=== PATIENT | female | born 1975 | race African-American/Black ===

== ENCOUNTER 2017-06-17 12:42 | Emergency (ER) | payer OTHER ==
--- NOTE | 2017-06-17 12:55 | PDOC ---
History of Present Illness - General Chief Complaint: Rash Stated Complaint: RASH Time Seen by Provider: 06/17/17 12:45 History Source: Patient Exam Limitations: No Limitations - History of Present Illness Initial Comments: 06/17/17 12:57 CHIEF COMPLAINT: Abdominal pain HISTORY OF PRESENT ILLNESS: This is a 39 year old female with a history of HLD, HTN, anxiety/depression, and GERD who presents complaining of Rash on the left buttock that has been present for the past month. No fevers or chills No pain unless a cream is applied (+) Pruritis Pt states this happened to her last year She was given a pill for it No new detergents, or soaps, no injections in this area Surgical history: Tubal ligation Smoking: Social smoker Alcohol: 5-6 drinks/day Sat/Sun Illicits: None PCP: Dr. Dorian Downey REVIEW OF SYSTEMS: GENERAL/CONSTITUTIONAL: Decreased appetite, fatigue for 1 day. Chronic nightsweats. SKIN: Yes: rash No easy bruising. NEUROLOGIC: No headache, vertigo, loss of consciousness, or loss of sensation. PSYCHIATRIC: History of depression and anxiety ENDOCRINE: No increased thirst. No abnormal weight change. HEMATOLOGIC/LYMPHATIC: No anemia, easy bleeding, or history of blood clots. ALLERGIC/IMMUNOLOGIC: Metoclopramide (shaky), acetaminophen (shaky, general ill feeling), oxycodone (pruritus). PHYSICAL EXAM: GENERAL: The patient is awake, alert, and fully oriented, in no acute distress. HEAD: Normal with no signs of trauma. EXTREMITIES: Normal range of motion, no edema. SKIN: 4cm in diameter area of hyperpigmented, dry skin, one area also superior to this site that is darkened No local erythema No blisters Not warm 06/17/17 13:45 Past History - Past Medical History Allergies/Adverse Reactions: Allergies Allergy/AdvReac Type Severity Reaction Status Date / Time metoclopramide HCl Allergy Mild SHAKY Verified 06/17/17 12:44 [From Reglan] acetaminophen [From Percocet] Allergy Itching Verified 06/17/17 12:44 oxycodone HCl [From Percocet] Allergy Itching Verified 06/17/17 12:44 Home Medications: Ambulatory Orders Omeprazole [Prilosec] 20 mg PO DAILY 01/20/16 Clotrimazole [Alevazol] 1 unit TP BID #1 tube 06/17/17 HTN: Yes HIV: Yes Psychiatric Problems: Yes (ANXIETY.) Suicide Attempt (Hx): No - Surgical History Abdominal Surgery: Yes - Family Disease History Family Disease History: CA: Mother (colon) - Immunization History Immunization Up to Date: Yes - Psycho/Social/Smoking Cessation Hx Anxiety: Yes Suicidal Ideation: No Smoking Status: No Smoking History: Current some day smoker Have you smoked in the past 12 months: Yes Number of Cigarettes Smoked Daily: 2 Hx Alcohol Use: No Drug/Substance Use Hx: No Substance Use Type: None Medical Decision Making - Medical Decision Making 06/17/17 13:49 Unclear what this is due to Pt has no history of eczema, not warm, not tender Will discharge on fungal cream Will ask pt to follow up with derm *DC/Admit/Observation/Transfer Diagnosis at time of Disposition: Rash - Discharge Dispostion Disposition: HOME Condition at time of disposition: Stable Admit: No - Prescriptions Prescriptions: Clotrimazole [Alevazol] 1 unit TP BID #1 tube - Referrals Referrals: Trini Morris [Staff Physician] - - Patient Instructions Printed Discharge Instructions: DI for Rash Additional Instructions: Moises, Thank you for coming into the ED today. Please read your discharge instructions and take your medications as prescribed. Please follow up with dermatology, Dr. Morris. Return to the ED if you notice fever, chills, nausea, vomiting, or significantly worsening rash.
[2017-06-17 13:08] VITALS: BP 142/94; PULSE 80; TEMP 98.1; BMI 50.8
== END 2017-06-17 14:09 | disposition home or self-care (01) ==
LOC: FER 12:42
DX: R21 Rash and other nonspecific skin eruption (principal); Z21 Asymptomatic human immunodeficiency virus [HIV] infection status; I10 Essential (primary) hypertension; F41.9 Anxiety disorder, unspecified; F17.210 Nicotine dependence, cigarettes, uncomplicated
CPT/HCPCS: 99281-25

== ENCOUNTER 2017-08-02 15:09 | Emergency (ER) | payer OTHER ==
[2017-08-02 15:19] VITALS: BP 152/96; PULSE 64; TEMP 98.2; BMI 52.3
--- NOTE | 2017-08-02 15:43 | PDOC ---
History of Present Illness - General History Source: Patient, Significant Other - History of Present Illness Initial Comments: 08/02/17 15:49 The patient is a 41 year old female, no significant past medical history, who presents to the emergency department with right 3rd toe numbness. 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 Her subsea engineer then wrapped it with an bernabe bandage. Once the patient removed the bandage, she noticed that she lost sensation in her toe and became concerned. She denies experiencing this kind of numbness before. She denies any other symptoms. <Agustina Garcia - Last Filed: 08/02/17 15:55> <Tamiko Nina - Last Filed: 08/02/17 17:42> - General Chief Complaint: Pain, Acute Stated Complaint: toe numbness s/p procedure x 1 wk Time Seen by Provider: 08/02/17 15:19 Past History <Agustina Garcia - Last Filed: 08/02/17 15:55> - Past Medical History HTN: Yes Psychiatric Problems: Yes (ANXIETY.) Other medical history: gerd - Surgical History Abdominal Surgery: Yes - Family Disease History Family Disease History: CA: Mother (colon) - Immunization History Immunization Up to Date: Yes - Suicide/Smoking/Psychosocial Hx Smoking Status: No Smoking History: Former smoker Have you smoked in the past 12 months: Yes Number of Cigarettes Smoked Daily: 2 Information on smoking cessation initiated: Yes 'Breaking Loose' booklet given: 08/02/17 Hx Alcohol Use: Yes Drug/Substance Use Hx: No Substance Use Type: Alcohol <Tamiko Nina - Last Filed: 08/02/17 17:42> - Past Medical History Allergies/Adverse Reactions: Allergies Allergy/AdvReac Type Severity Reaction Status Date / Time metoclopramide HCl Allergy Mild SHAKY Verified 08/02/17 15:10 [From Reglan] acetaminophen [From Percocet] Allergy Itching Verified 08/02/17 15:10 oxycodone HCl [From Percocet] Allergy Itching Verified 08/02/17 15:10 Home Medications: Ambulatory Orders Omeprazole [Prilosec] 20 mg PO DAILY 01/20/16 Review of Systems - Review of Systems Comments:: 08/02/17 15:49 GENERAL/CONSTITUTIONAL: No fever or chills. No weakness. MUSCULOSKELETAL: + 3rd right toes numbness. No joint or muscle swelling or pain. No neck or back pain. SKIN: +removal of nail on 3rd rt toe after abscess removal. No rash NEUROLOGIC: +loss of sensation 3rd rt toe. No headache, vertigo, loss of consciousness, or change in strength. <Agustina Garcia - Last Filed: 08/02/17 15:55> *Physical Exam - Vital Signs Last Vital Signs Temp Pulse Resp BP Pulse Ox 98.2 F 64 16 152/96 99 08/02/17 15:10 08/02/17 15:10 08/02/17 15:10 08/02/17 15:10 08/02/17 15:10 <Agustina Garcia - Last Filed: 08/02/17 15:55> - Vital Signs Last Vital Signs Temp Pulse Resp BP Pulse Ox 98.2 F 64 16 152/96 99 08/02/17 15:10 08/02/17 15:10 08/02/17 15:10 08/02/17 15:10 08/02/17 15:10 - Physical Exam Comments: GENERAL: Awake, alert, and fully oriented, in no acute distress EXTREMITIES: L 3rd toe with dec sensation. Normal range of motion, no edema. No clubbing or cyanosis. No cords, erythema, or tenderness NEUROLOGICAL: Cranial nerves II through XII grossly intact. Normal speech, normal gait SKIN: Warm, Dry, normal turgor, no rashes or lesions noted. <Tamiko Nina - Last Filed: 08/02/17 17:42> Medical Decision Making - Medical Decision Making Pt with dec sensation to the affected toe. The infection has completed healed, so it is unlikely that it was so deep to cause nerve damage. More likely she had a lidocaine injection that may have gone into the nerve. I explained that it may heal over time. No acute findings otherwise. Stable for DC home. <Tamiko Nina - Last Filed: 08/02/17 17:42> *DC/Admit/Observation/Transfer - Attestations Scribe Attestion: 08/02/17 15:56 Documentation prepared by Agustina Garcia, acting as medical affairs manager for Tamiko Nina MD. <Agustina Garcia - Last Filed: 08/02/17 15:55> - Discharge Dispostion Admit: No <Tamiko Nina - Last Filed: 08/02/17 17:42> Diagnosis at time of Disposition: Paresthesia of lower extremity - Discharge Dispostion Disposition: HOME Condition at time of disposition: Stable - Patient Instructions Printed Discharge Instructions: DI for Numbness/tingling
== END 2017-08-02 15:48 | disposition home or self-care (01) ==
LOC: FER 15:09
DX: R20.2 Paresthesia of skin (principal); F32.9 Major depressive disorder, single episode, unspecified; I10 Essential (primary) hypertension; Z87.891 Personal history of nicotine dependence
CPT/HCPCS: 99281-25

== ENCOUNTER 2018-03-20 19:48 | Emergency (ER) | payer OTHER ==
[2018-03-20 19:56] VITALS: BP 132/78; PULSE 90; TEMP 98.3; BMI 50.6
[2018-03-20] MEDS ORDERED: IBUPROFEN 400 MG TABLET (FP) PO ONE ×2 (19:57→19:59)
--- NOTE | 2018-03-20 19:57 | PDOC ---
History of Present Illness <Janet Suazo - Last Filed: 03/20/18 19:59> - General History Source: Patient Exam Limitations: No Limitations - History of Present Illness Initial Comments: 03/20/18 20:10 The patient is a 42 year old female with a significant past medical history of GERD, hypertension, arthritis, and anxiety who presents to the emergency department for evaluation of pain behind left knee. The patient reports waking up yesterday with moderate pain on the dorsal side of her left knee. She reports taking Mobic yesterday with no alleviation and Motrin ([id number]) at 11am today with mild alleviation. She denies trauma to leg or any other kind of injuries. The patient denies chest pain, shortness of breath, headache, and dizziness. Denies fevers, chills, nausea, vomiting, diarrhea, and constipation. Allergies: Metoclopramide HCl, acetaminophen, oxycodone HCl Past surgical history: . Social history: Former smoker. No reported alcohol or drug use. PCP: Dr. Dorian Downey ([phone]) <Danis Mayers - Last Filed: 03/20/18 20:18> - General Chief Complaint: Pain Stated Complaint: LT KNEE PAIN Past History - Past Medical History COPD: No GI Disorders: Yes (GERD) HTN: Yes Psychiatric Problems: Yes (ANXIETY.) - Surgical History Abdominal Surgery: Yes - Family Disease History Family Disease History: CA: Mother (colon) - Immunization History Immunization Up to Date: Yes - Suicide/Smoking/Psychosocial Hx Smoking Status: No Smoking History: Former smoker Have you smoked in the past 12 months: No Number of Cigarettes Smoked Daily: 2 Information on smoking cessation initiated: No 'Breaking Loose' booklet given: 08/02/17 Hx Alcohol Use: No Drug/Substance Use Hx: No Substance Use Type: Alcohol <Janet Suazo - Last Filed: 03/20/18 19:59> <Danis Mayers - Last Filed: 03/20/18 20:18> - Past Medical History Allergies/Adverse Reactions: Allergies Allergy/AdvReac Type Severity Reaction Status Date / Time metoclopramide HCl Allergy Mild SHAKY Verified 08/02/17 15:10 [From Reglan] acetaminophen [From Percocet] Allergy Itching Verified 08/02/17 15:10 oxycodone HCl [From Percocet] Allergy Itching Verified 08/02/17 15:10 Home Medications: Ambulatory Orders Omeprazole [Prilosec] 20 mg PO DAILY 01/20/16 Ibuprofen 800 mg PO TID PRN #30 tablet 03/20/18 Review of Systems - Review of Systems Able to Perform ROS?: Yes Comments:: GENERAL/CONSTITUTIONAL: No fever or chills. No weakness. HEAD, EYES, EARS, NOSE AND THROAT: No change in vision. No ear pain or discharge. No sore throat. CARDIOVASCULAR: No chest pain or shortness of breath. RESPIRATORY: No cough, wheezing, or hemoptysis. GASTROINTESTINAL: No nausea, vomiting, diarrhea or constipation. GENITOURINARY: No dysuria, frequency, or change in urination. MUSCULOSKELETAL: (+)Dorsal side of left knee pain. No neck or back pain. SKIN: No rash NEUROLOGIC: No headache, vertigo, loss of consciousness, or change in strength/ sensation. ENDOCRINE: No increased thirst. No abnormal weight change. HEMATOLOGIC/LYMPHATIC: No anemia, easy bleeding, or history of blood clots. ALLERGIC/IMMUNOLOGIC: No hives or skin allergy. <Danis Mayers - Last Filed: 03/20/18 20:18> *Physical Exam - Vital Signs Last Vital Signs Temp Pulse Resp BP Pulse Ox 98.3 F 90 16 132/78 99 03/20/18 19:51 03/20/18 19:51 03/20/18 19:51 03/20/18 19:51 03/20/18 19:51 <Janet Suazo - Last Filed: 03/20/18 19:59> - Vital Signs Last Vital Signs Temp Pulse Resp BP Pulse Ox 98.3 F 90 16 132/78 99 03/20/18 19:51 03/20/18 19:51 03/20/18 19:51 03/20/18 19:51 03/20/18 19:51 - Physical Exam Comments: GENERAL: Awake, alert, and fully oriented, in no acute distress HEAD: No signs of trauma EYES: PERRLA, EOMI, sclera anicteric, conjunctiva clear ENT: Auricles normal inspection, hearing grossly normal, nares patent, oropharynx clear without exudates. Moist mucosa NECK: Normal ROM, supple, no lymphadenopathy, JVD, or masses LUNGS: Breath sounds equal, clear to auscultation bilaterally. No wheezes, and no crackles HEART: Regular rate and rhythm, normal S1 and S2, no murmurs, rubs or gallops ABDOMEN: Soft, nontender, normoactive bowel sounds. No guarding, no rebound. No masses EXTREMITIES: (+)Tenderness on lateral aspect of posterior left knee. Ambulatory with slight limp. No deformity or swelling. For other extremities, normal range of motion. NEUROLOGICAL: Cranial nerves II through XII grossly intact. Normal speech. SKIN: Warm, Dry, normal turgor, no rashes or lesions noted. <Danis Mayers - Last Filed: 03/20/18 20:18> ED Treatment Course - Medications Given in the ED: ED Medications Discontinued Medications Generic Name Dose Route Start Last Admin Trade Name Freq PRN Reason Stop Dose Admin Ibuprofen 800 mg 03/20/18 19:57 03/20/18 20:00 Motrin - PO 03/20/18 19:58 800 mg ONCE ONE Administration <Danis Mayers - Last Filed: 03/20/18 20:18> Medical Decision Making - Medical Decision Making 03/20/18 19:59 Pt presents to the ED complaining of atraumatic l knee pain. Patient is ambulatory in the ED without difficulty. Minimal lateral knee tenderness. No swelling. Full ROM. Most likely knee strain. WIll treat with motrin and discharge home with instructions to follow up with her PMD within one week. <Janet Suazo - Last Filed: 03/20/18 19:59> *DC/Admit/Observation/Transfer - Discharge Dispostion Decision to Admit order: No <Janet Suazo - Last Filed: 03/20/18 19:59> - Attestations Scribe Attestion: Documentation prepared by Danis Mayers, acting as medical office administrator for Janet Suazo MD. <Danis Mayers - Last Filed: 03/20/18 20:18> Diagnosis at time of Disposition: Left lateral knee pain - Discharge Dispostion Disposition: HOME Condition at time of disposition: Good - Prescriptions Prescriptions: Ibuprofen 800 mg PO TID PRN #30 tablet PRN Reason: Moderate Pain - Referrals Referrals: Dorian Downey MD [Primary Care Provider] - - Patient Instructions Printed Discharge Instructions: DI for Knee Pain Additional Instructions: return to the ED for severe knee pain or swelling, if you are unable to bend your knee or walk. Return if your leg becomes swollen or if you have pain in your knee with fever. Follow up with your doctor within one week. - Post Discharge Activity
== END 2018-03-20 20:05 | disposition home or self-care (01) ==
LOC: FER 19:48
DX: M25.562 Pain in left knee (principal)
CPT/HCPCS: 99282-25

== ENCOUNTER 2018-03-26 14:38 | Emergency (ER) | payer OTHER ==
[2018-03-26 14:52] VITALS: BP 137/91; PULSE 88; TEMP 98.9; BMI 47.6
--- NOTE | 2018-03-26 15:26 | PDOC ---
History of Present Illness - General History Source: Patient Exam Limitations: No Limitations - History of Present Illness Initial Comments: 03/26/18 16:02 The patient is a 42 year old female with a significant past medical history of GERD, hypertension, arthritis, pre-diabetic, borderline HTN, osteoarthritis, and anxiety who presents to the emergency department with, one week of pain behind left knee. She describes her pain to be localized to the back of her left knee and as a heavy feeling. The patient reports that she woke up with this pain a week ago and came into the ED for evaluation. The patient was prescribed Motrin that she has been taking with minimal relief. The patient is currently on disability after fracturing her leg in the past. She denies any recent injury. She denies recent fevers, chills, headache or dizziness. She denies recent nausea, vomit, diarrhea or constipation. She denies recent dysuria, frequency, urgency or hematuria. She denies recent chest pain or shortness of breath. Allergies: Metoclopramide HCl, acetaminophen, oxycodone HCl Past surgical history: . Social history: Former smoker..Denies EtOH use and recreational drug use. Primary Care Physician: Dr. Dorian Downey <Jacky Medrano - Last Filed: 03/26/18 16:02> <Josesito Vasquez - Last Filed: 03/26/18 16:11> - General Chief Complaint: Pain Stated Complaint: LEFT KNEE PAIN Time Seen by Provider: 03/26/18 14:53 Past History <Jacyk Medrano - Last Filed: 03/26/18 16:02> - Past Medical History COPD: No HTN: Yes Psychiatric Problems: Yes (ANXIETY.) - Surgical History Abdominal Surgery: Yes - Family Disease History Family Disease History: CA: Mother (colon) - Immunization History Immunization Up to Date: Yes - Suicide/Smoking/Psychosocial Hx Smoking Status: No Smoking History: Former smoker Have you smoked in the past 12 months: No Number of Cigarettes Smoked Daily: 2 Information on smoking cessation initiated: No 'Breaking Loose' booklet given: 08/02/17 Hx Alcohol Use: No Drug/Substance Use Hx: No Substance Use Type: None <Josesito Vasquez - Last Filed: 03/26/18 16:11> - Past Medical History Allergies/Adverse Reactions: Allergies Allergy/AdvReac Type Severity Reaction Status Date / Time metoclopramide HCl Allergy Mild SHAKY Verified 08/02/17 15:10 [From Reglan] acetaminophen [From Percocet] Allergy Itching Verified 08/02/17 15:10 oxycodone HCl [From Percocet] Allergy Itching Verified 08/02/17 15:10 Home Medications: Ambulatory Orders Omeprazole [Prilosec] 20 mg PO DAILY 01/20/16 Ibuprofen 800 mg PO TID PRN #30 tablet 03/20/18 Trauma Specific PMHX - Complaint Specific PMHX Arthritis: No Back Injury: No Neck Injury: No Hx Sacro Iliac Joint Dysfunction: No <Josesito Vasquez - Last Filed: 03/26/18 16:11> Review of Systems - Review of Systems Able to Perform ROS?: Yes Comments:: 03/26/18 16:02 CONSTITUTIONAL: Absent: fever, no chills, no fatigue EYES: Absent: visual changes ENT: Absent: ear pain, no sore throat CARDIOVASCULAR: Absent: chest pain, no palpitations RESPIRATORY: Absent: cough, no SOB GI: Absent: abdominal pain, no nausea, no vomiting, no constipation, no diarrhea GENITOURINARY: Absent: dysuria, no frequency, no hematuria MUSKULOSKELETAL: Present: Dorsal side of left knee pain. Absent: back pain SKIN: Absent: rash NEURO: Absent: headache All Other Systems: Reviewed and Negative <Jacky Medrano - Last Filed: 03/26/18 16:02> *Physical Exam - Vital Signs Last Vital Signs Temp Pulse Resp BP Pulse Ox 98.9 F 88 16 137/91 99 03/26/18 14:42 03/26/18 14:42 03/26/18 14:42 03/26/18 14:42 03/26/18 14:42 - Physical Exam Comments: 03/26/18 16:02 GENERAL: Well developed, well nourished. Awake and alert. No acute distress. HEENT: Normocephalic, atraumatic. PERRLA, EOMI. No conjunctival pallor. Sclera are non- icteric. Moist mucous membranes. Oropharynx is clear. NECK: Supple. Full ROM. No JVD. Carotid pulses 2+ and symmetric, without bruits. No thyromegaly. No lymphadenopathy. CARDIOVASCULAR: Regular rate and rhythm. No murmurs, rubs, or gallops. Distal pulses are 2+ and symmetric. PULMONARY: No evidence of respiratory distress. Lungs clear to auscultation bilaterally. No wheezing, rales or rhonchi. ABDOMINAL: Soft. Non-tender. Non-distended. No rebound or guarding. No organomegaly. Normoactive bowel sounds. MUSCULOSKELETAL Normal range of motion at all joints. No bony deformities or tenderness. No CVA tenderness. KNEE: Patient complains of localized pain to the left popliteal area. No anterior or lateral pain. No deformities, swelling, or effusion. Patella and patellar retinaculum intact and nontender. No stress tenderness of the MCL or LCL. Danish test negative. No popliteal mass or tenderness to palpation. Distal pulses full. No distal sensation or motor deficits. No posterior calf tenderness or swelling. No edema to the calf. No erythema or warmth of the knee or calf. EXTREMITIES: No cyanosis. No clubbing. No edema. No calf tenderness. SKIN: Warm and dry. Normal capillary refill. No rashes. No jaundice. NEUROLOGICAL: Alert, awake, appropriate. Cranial nerves 2-12 intact. No deficits to light touch and temperature in face, upper extremities and lower extremities. No motor deficits in the in face, upper extremities and lower extremities. Normoreflexic in the upper and lower extremities. Normal speech. Toes are down- going bilaterally. Gait is normal without ataxia. PSYCHIATRIC: Cooperative. Good eye contact. Appropriate mood and affect. <Jacky Medrano - Last Filed: 03/26/18 16:02> - Vital Signs Last Vital Signs Temp Pulse Resp BP Pulse Ox 98.9 F 88 16 137/91 99 03/26/18 14:42 03/26/18 14:42 03/26/18 14:42 03/26/18 14:42 03/26/18 14:42 <Josesito Vasquez - Last Filed: 03/26/18 16:11> Medical Decision Making - Medical Decision Making 03/26/18 16:10 No evidence of acute knee injury, or DVT. This is likely chronic strain due to morbid obesity. Obed wrap applied. Symptomatic treatment and orthopedic follow-up recommended. Adequately ambulatory upon discharge in no significant pain to follow-up as directed <Josesito Vasquez - Last Filed: 03/26/18 16:11> *DC/Admit/Observation/Transfer - Attestations Scribe Attestion: 03/26/18 16:03 Documentation prepared by Jacky Medrano, acting as medical technologist chief for Josesito Berman MD. <Jacky Medrano - Last Filed: 03/26/18 16:02> - Discharge Dispostion Decision to Admit order: No <Josesito Vasquez - Last Filed: 03/26/18 16:11> Diagnosis at time of Disposition: Knee strain Qualifiers: Encounter type: initial encounter Laterality: left Qualified Code(s): S86.912A - Strain of unspecified muscle(s) and tendon(s) at lower leg level, left leg, initial encounter - Discharge Dispostion Disposition: HOME Condition at time of disposition: Stable - Referrals Referrals: Keon Kuhn MD [Staff Physician] - 1 week - Patient Instructions Printed Discharge Instructions: How to Use an Elastic Bandage-Knee Sprain, DI for Knee Sprain Additional Instructions: Rest, ice, elevation, Obed wrap. Motrin as directed. Recheck orthopedist if no improvement. - Post Discharge Activity
== END 2018-03-26 15:30 | disposition home or self-care (01) ==
LOC: FER 14:38
DX: S86.912A Strain of unspecified muscle(s) and tendon(s) at lower leg level, left leg, initial encounter (principal); X58.XXXA Exposure to other specified factors, initial encounter; Y93.89 Activity, other specified; Y92.9 Unspecified place or not applicable; E66.01 Morbid (severe) obesity due to excess calories; F41.9 Anxiety disorder, unspecified; I10 Essential (primary) hypertension; Z87.891 Personal history of nicotine dependence
CPT/HCPCS: 99282-25

== ENCOUNTER 2018-08-21 18:25 | Emergency (ER) | payer OTHER ==
[2018-08-21 18:38] VITALS: BP 135/85; PULSE 81; TEMP 98.5; BMI 50.6
[2018-08-21 18:53] LABS: URINE APPEARANCE Slightly; URINE BILIRUBIN Negative (NEGATIVE); URINE COLOR Yellow; URINE GLUCOSE (UA) Negative (NEGATIVE); URINE KETONE Negative (NEGATIVE); URINE LEUK ESTERASE TRACE (NEGATIVE); URINE NITRITE Negative (NEGATIVE); URINE PROTEIN 2+ (NEGATIVE); URINE UROBILINOGEN 0.2 (0.2-1.0)
--- NOTE | 2018-08-21 19:14 | PDOC ---
History of Present Illness - General History Source: Patient Exam Limitations: No Limitations - History of Present Illness Initial Comments: 08/21/18 19:30 The patient is a 42 year old female, with a significant past medical history of anxiety, GERD, iron deficiency anemia (no meds) and HTN, who presents to the ED complaining of diarrhea and abdominal pain for the past 5 days. She denies any discoloration or blood in the stool. She describes her abdominal pain as a discomfort, ranging from mild to moderate, without radiation or modifying factors. She notes that she is eating normally for the past 4 days. The patient denies chest pain, shortness of breath, headache and dizziness. Denies fever, chills, nausea, vomiting, or constipation. Denies dysuria, frequency, urgency and hematuria. Allergies: Percocet, Reglan Past surgical history: tubaligaiton, Social History: Alcohol use. Cigarette use (3 daily). No drug use noted. <Frank Osman - Last Filed: 08/21/18 20:18> <Aurora Grace - Last Filed: 08/22/18 01:34> - General Chief Complaint: Pain Stated Complaint: ABDOMINAL PAIN 5 DAYS LOOSE STOOL Time Seen by Provider: 08/21/18 19:14 Past History <Frank Osman - Last Filed: 08/21/18 20:18> - Past Medical History COPD: No GI Disorders: Yes (GERD) HTN: Yes Psychiatric Problems: Yes (ANXIETY.) - Surgical History Abdominal Surgery: Yes - Family Disease History Family Disease History: CA: Mother (colon) - Reproductive History Is Patient Now?: No (#): 6 Para: 6 Tubal Ligation: Yes Spontaneous : 1 - Immunization History Immunization Up to Date: Yes - Suicide/Smoking/Psychosocial Hx Smoking Status: No Smoking History: Former smoker Have you smoked in the past 12 months: Yes Number of Cigarettes Smoked Daily: 3 Information on smoking cessation initiated: Yes 'Breaking Loose' booklet given: 08/21/18 Hx Alcohol Use: Yes (social) Drug/Substance Use Hx: No Substance Use Type: Alcohol <Aurora Grace - Last Filed: 08/22/18 01:34> - Past Medical History Allergies/Adverse Reactions: Allergies Allergy/AdvReac Type Severity Reaction Status Date / Time acetaminophen [From Percocet] Allergy Intermediate Itching Verified 08/21/18 18: 29 oxycodone HCl [From Percocet] Allergy Intermediate Itching Verified 08/21/18 18: 29 metoclopramide HCl Allergy Mild SHAKY Verified 08/21/18 18:28 [From Reglan] Home Medications: Ambulatory Orders Ibuprofen 800 mg PO PRN PRN 08/21/18 Omeprazole Magnesium [Prilosec Otc] 20 mg PO DAILY 08/21/18 Review of Systems - Review of Systems Able to Perform ROS?: Yes Comments:: 08/21/18 19:30 GENERAL/CONSTITUTIONAL: No fever or chills. No weakness. HEAD, EYES, EARS, NOSE AND THROAT: No change in vision. No ear pain or discharge. No sore throat. GASTROINTESTINAL: (+) Abdominal pain and diarrhea. No nausea, vomiting, or constipation. GENITOURINARY: No dysuria, frequency, or change in urination. CARDIOVASCULAR: No chest pain or shortness of breath. RESPIRATORY: No cough, wheezing, or hemoptysis. MUSCULOSKELETAL: No joint or muscle swelling or pain. No neck or back pain. SKIN: No rash NEUROLOGIC: No headache, vertigo, loss of consciousness, or change in strength/ sensation. ENDOCRINE: No increased thirst. No abnormal weight change. HEMATOLOGIC/LYMPHATIC: No anemia, easy bleeding, or history of blood clots. ALLERGIC/IMMUNOLOGIC: No hives or skin allergy. <Frank Osman - Last Filed: 08/21/18 20:18> *Physical Exam - Vital Signs Last Vital Signs Temp Pulse Resp BP Pulse Ox 98.5 F 81 20 135/85 100 08/21/18 18:27 08/21/18 18:27 08/21/18 18:27 08/21/18 18:27 08/21/18 18:27 - Physical Exam Comments: 08/21/18 19:37 Constitutional: Awake, alert, oriented. No acute distress. Head: Normocephalic. Atraumatic Eyes: PERRL. EOMI. Conjunctivae are not pale. ENT: Mucous membranes are moist and intact. Posterior pharynx without exudates or erythema. Uvula midline. Neck: Supple. Full ROM. No lymphadenopathy. Cardiovascular: Regular rate. Regular rhythm. S1, S2 regular. Distal pulses are 2+ and symmetric. Pulmonary/Chest: No evidence of respiratory distress. Clear to auscultation bilaterally No wheezing, rales or rhonchi. Abdominal: Soft and non-distended. There is no tenderness. No rebound, guarding or rigidity. No organomegaly. No palpable masses. Good bowel sounds. Back: No CVA tenderness. Musculoskeletal: No edema. No cyanosis. No clubbing. Full range of motion in all extremities. Nocalf tenderness. Radial/pedal pulses are intact and 2+ bilaterally Skin: Skin is warm and dry. No petechiae. No purpura. Neurological: Alert and oriented to person, place, and time. Cranial nerves II -XII are grossly intact. Normal speech. Strength is grossly symmetric. No sensory deficits. Psychiatric: Good eye contact. Normal interaction, affect and behavior. <Frank Osman - Last Filed: 08/21/18 20:18> - Vital Signs Last Vital Signs Temp Pulse Resp BP Pulse Ox 98.5 F 81 20 135/85 100 08/21/18 18:27 08/21/18 18:27 08/21/18 18:27 08/21/18 18:27 08/21/18 18:27 <Aurora Grace - Last Filed: 08/22/18 01:34> ED Treatment Course - LABORATORY CBC & Chemistry Diagram: 08/21/18 19:35 08/21/18 19:35 - ADDITIONAL ORDERS Additional order review: Laboratory Results 08/21/18 08/21/18 18:43 18:43 Urine Color Yellow Urine Appearance Slightly Urine pH 6.0 Ur Specific [place] 1.025 Urine Protein 2+ H Urine Glucose (UA) Negative Urine Ketones Negative Urine Blood 2+ H Urine Nitrite Negative Urine Bilirubin Negative Urine Urobilinogen 0.2 Ur Leukocyte Esterase Trace H Urine RBC 10-20 Urine WBC 10-20 Ur Epithelial Cells 2+ Urine Bacteria 2+ Urine HCG, Qual Negative <Frank Osman - Last Filed: 08/21/18 20:18> - LABORATORY CBC & Chemistry Diagram: 08/21/18 19:35 08/21/18 19:35 - ADDITIONAL ORDERS Additional order review: Laboratory Results 08/21/18 08/21/18 18:43 18:43 Urine Color Yellow Urine Appearance Slightly Urine pH 6.0 Ur Specific [place] 1.025 Urine Protein 2+ H Urine Glucose (UA) Negative Urine Ketones Negative Urine Blood 2+ H Urine Nitrite Negative Urine Bilirubin Negative Urine Urobilinogen 0.2 Ur Leukocyte Esterase Trace H Urine HCG, Qual Negative <Aurora Grace - Last Filed: 08/22/18 01:34> Progress Note - Progress Note Progress Note: Documentation has been prepared under my direction and personally reviewed by me in its entirety. I attest that this documented accurately reflects all work, treatment, procedures and medical decision making performed by me. <Aurora Grace - Last Filed: 08/22/18 01:34> Medical Decision Making - Medical Decision Making As noted above, this 42-year-old woman presents with a several day history of diarrhea. She has not had any vomiting and has been able to take oral hydration and solid foods for the last few days. She presents tonight because she has some residual bloating and epigastric discomfort. She states that she does not have dysuria/urinary frequency or urgency. However, when she has epigastric discomfort in this way she has developed UTIs in the past. No other symptoms presented. Exam as noted. CBC/chemistry profile/UA was sent. Patient has borderline anemia; she has a previous diagnosis of iron deficiency anemia but does not take her iron supplementation because she becomes constipated while taking it. No other abnormalities on CBC. Chemistry profile likewise shows no electrolyte abnormalities or evidence of dehydration. Urinalysis is equivocal with trace LE, 10 - 20 RBC, 1020 WBC, 2+ epi, 2+ bacteria. Urine will be sent for culture and sensitivity. Meanwhile, the patient should continue bland diet and Prilosec as previously. If she develops symptoms of UTI, she should return here or see her doctor. Otherwise, she will be contacted if C&S is positive for UTI. Probiotics were Discussed with the patient ;she will consider taking them. She should follow-up with her doctor in next several days <Aurora Grace - Last Filed: 08/22/18 01:34> *DC/Admit/Observation/Transfer - Attestations Scribe Attestion: 08/21/18 19:37 Documentation prepared by Frank Osman, acting as medical device assembler for Aurora Grace MD <Frank Osman - Last Filed: 08/21/18 20:18> <Aurora Grace - Last Filed: 08/22/18 01:34> Diagnosis at time of Disposition: Diarrhea Qualifiers: Diarrhea type: unspecified type Qualified Code(s): R19.7 - Diarrhea, unspecified Anemia Qualifiers: Anemia type: iron deficiency Iron deficiency anemia type: unspecified iron deficiency Qualified Code(s): D50.9 - Iron deficiency anemia, unspecified - Discharge Dispostion Disposition: HOME Condition at time of disposition: Stable - Patient Instructions Printed Discharge Instructions: Diarrhea Additional Instructions: continue bland diet as discussed continue prilosec as previously prescribed Imodium/Kaopectate if loose stools occur consider using probiotics as discussed followup with your doctor within the next 5 days return to the ER if you have severe abdominal pain or UTI symptoms
[2018-08-21 19:25] LABS: EPI CELLS 2+ /HPF; URINE BACTERIA 2+ /hpf (NEGATIVE)
[2018-08-21 19:50] LABS: BASO % 0.4 % (0-2.0); EOS % 1.7 % (0-4.5); HEMATOCRIT 30.2 % (32.4-45.2); HEMOGLOBIN 9.9 GM/dl (10.7-15.3); LYMPH % 39.7 % (8-40); MCH 27.8 pg (25.7-33.7); MCHC 32.8 g/dl (32.0-36.0); MEAN CELL VOLUME 84.7 fl (80-96); MEAN PLT VOLUME 7.5 fl (7.5-11.1); MONO % 7.8 % (3.8-10.2); NEUT % 50.4 % (42.8-82.8); PLATELET COUNT 383 K/MM3 (134-434); RBC 3.57 M/mm3 (3.60-5.2); RDW 14.5 % (11.6-15.6); WHITE BLOOD COUNT 5.6 K/mm3 (4.0-10.8)
[2018-08-21 20:02] LABS: ALBUMIN 2.9 g/dl (3.5-5.0); ALK PHOS 85 U/L (32-92); ANION GAP 4 MMOL/L (8-16); BILIRUBIN,TOTAL 0.3 mg/dl (0.2-1.0); BLOOD UREA NITROGEN 11 mg/dl (7-18); CALCIUM 8.5 mg/dl (8.4-10.2); CHLORIDE 106 mmol/L (98-107); CO2 24 mmol/L (22-28); CREATININE 0.7 mg/dl (0.6-1.3); GLUCOSE,RANDOM 97 mg/dl (74-106); POTASSIUM 3.6 mmol/L (3.5-5.1); SGOT/AST 29 U/L (10-42); SGPT/ALT 24 U/L (10-40); SODIUM 134 mmol/L (136-145); TOT PROT 6.8 g/dl (6.4-8.3)
[2018-08-21] MEDS ORDERED: MAG HYDROX/AL HYDROX/SIMETH -MYLANTA- ORAL SUSPENSION PO ONE (20:12)
[2018-08-21] MEDS ORDERED: MAG HYDROX/AL HYDROX/SIMETH 30 ML UNIT-DOSE CUP ONE (20:19)
== END 2018-08-21 20:23 | disposition home or self-care (01) ==
LOC: FER 18:25
DX: D50.9 Iron deficiency anemia, unspecified (principal); R19.7 Diarrhea, unspecified; F41.9 Anxiety disorder, unspecified; K21.9 Gastro-esophageal reflux disease without esophagitis; I10 Essential (primary) hypertension
CPT/HCPCS: 36415; 80053; 81003; 81015; 84703; 85025; 87086; 99282-25

== ENCOUNTER 2019-07-29 11:14 | Emergency (ER) | payer OTHER ==
[2019-07-29 11:26] VITALS: BP 153/93; PULSE 95; TEMP 99.8; BMI 48.7
--- NOTE | 2019-07-29 12:05 | PDOC ---
History of Present Illness - General Chief Complaint: Pain Stated Complaint: ABDOMINAL PAIN,FREQUENT URINATION Time Seen by Provider: 07/29/19 11:27 History Source: Patient (Patient walked in complaining of abdominal cheryl, mainly suprapibic, urgency at urination, Patient reports having intercourse 4 days ago (after a long abstinence)) - History of Present Illness Is this a multiple visit Asthma Patient?: No Timing/Duration: getting worse Severity: moderate Past History - Travel Traveled outside of the country in the last 30 days: No Close contact w/someone who was outside of country & ill: No - Past Medical History Allergies/Adverse Reactions: Allergies Allergy/AdvReac Type Severity Reaction Status Date / Time acetaminophen [From Percocet] Allergy Intermediate Itching Verified 07/29/19 11: 16 oxycodone HCl [From Percocet] Allergy Intermediate Itching Verified 07/29/19 11: 16 metoclopramide HCl Allergy Mild SHAKY Verified 07/29/19 11:16 [From Reglan] Home Medications: Ambulatory Orders Ibuprofen 800 mg PO PRN PRN 08/21/18 Omeprazole Magnesium [Prilosec Otc] 20 mg PO DAILY 08/21/18 levoFLOXacin [Levaquin] 750 mg PO DAILY #14 tab 07/29/19 COPD: No GI Disorders: Yes (GERD) HTN: Yes Psychiatric Problems: Yes (ANXIETY.) - Surgical History Abdominal Surgery: Yes - Reproductive History (#): 6 Para: 6 Tubal Ligation: Yes Spontaneous : 1 - Immunization History Immunization Up to Date: Yes - Psycho Social/Smoking Cessation Hx Smoking Status: No Smoking History: Current some day smoker Have you smoked in the past 12 months: Yes Number of Cigarettes Smoked Daily: 1 Information on smoking cessation initiated: Yes 'Breaking Loose' booklet given: 08/21/18 Hx Alcohol Use: Yes (social) Drug/Substance Use Hx: No Substance Use Type: Alcohol Review of Systems - Review of Systems Able to Perform ROS?: Yes Is the patient limited Spanish proficient: Yes Constitutional: Yes: Symptoms Reported, Chills, Malaise HEENTM: No: Symptoms Reported, See HPI, Eye Pain, Blurred Vision, Tearing, Recent change in vision, Double Vision, Cataracts, Ear Pain, Ocular Prothesis, Ear Discharge, Nose Pain, Nose Congestion, Tinnitus, Nose Bleeding, Hearing Loss , Throat Pain, Throat Swelling, Mouth Pain, Dental Problems, Difficulty Swallowing, Mouth Swelling, Other Respiratory: No: Symptoms reported, See HPI, Cough, Orthopnea, Shortness of Breath, SOB with Exertion, SOB at Rest, Stridor, Wheezing, Productive cough, Hemoptysis, Other Cardiac (ROS): No: Symptoms Reported, See HPI, Chest Pain, Edema, Irregular Heart Rate, Lightheadedness, Palpitations, Syncope, Chest Tightness, Other ABD/GI: Yes: See HPI : Yes: Symptoms Reported, Burning, Dysuria, Frequency Neurological: No: Symptoms reported, See HPI, Headache, Numbness, Paresthesia, Pre-Existing Deficit, Seizure, Tingling, Tremors, Weakness, Unsteady Gait, Ataxia, Dizziness, Other Psychiatric: No: Anxiety, Depression, Frequent Crying, Stressors, Sleep Pattern Change, Emotional Problems, Mood Swings, Change in Appetite, Other *Physical Exam - Vital Signs Last Vital Signs Temp Pulse Resp BP Pulse Ox 99.8 F H 95 H 18 153/93 99 07/29/19 11:15 07/29/19 11:15 07/29/19 11:15 07/29/19 11:15 07/29/19 11:15 - Physical Exam General Appearance: Yes: Nourished, Appropriately Dressed, Mild Distress, Moderate Distress, Obese HEENT: positive: [place] Neck: positive: Supple Gastrointestinal/Abdominal: positive: Normal Bowel Sounds, Soft Musculoskeletal: positive: Normal Inspection Extremity: positive: Normal Capillary Refill, Normal Inspection Integumentary: positive: Normal Color, Dry, Warm Neurologic: positive: Fully Oriented, Alert Medical Decision Making - Medical Decision Making Patient's symptoms starting next day after having intercours, strongly suggestive of UTI Rx started in ER 07/31/19 07:30 Discharge - Discharge Information Problems reviewed: Yes Clinical Impression/Diagnosis: UTI (urinary tract infection) Qualifiers: Urinary tract infection type: acute cystitis Hematuria presence: with hematuria Qualified Code(s): N30.01 - Acute cystitis with hematuria Condition: Stable Disposition: HOME - Admission No - Additional Discharge Information Prescriptions: levoFLOXacin [Levaquin] 750 mg PO DAILY #14 tab Prescription Drug Monitoring Program (I-STOP) results: I-STOP reviewed and no issues identified - Follow up/Referral - Patient Discharge Instructions Patient Printed Discharge Instructions: DI for Urinary Tract Infection (UTI) - Post Discharge Activity
[2019-07-29 13:54] LABS: EPITHELIAL CELLS FEW /hpf; URINE TRICHOMONAS 1+
== END 2019-07-29 12:58 | disposition home or self-care (01) ==
LOC: FER 11:14
DX: N39.0 Urinary tract infection, site not specified (principal); F17.210 Nicotine dependence, cigarettes, uncomplicated; K21.9 Gastro-esophageal reflux disease without esophagitis; F41.9 Anxiety disorder, unspecified; Z88.8 Allergy status to other drugs, medicaments and biological substances; Z88.6 Allergy status to analgesic agent
CPT/HCPCS: 81003; 81015; 81025; 87086; 87186; 99283-25

== ENCOUNTER 2021-07-27 06:40 | Emergency (ER) | payer OTHER ==
[2021-07-27 07:10] VITALS: BP 134/87; PULSE 83; TEMP 97.3; BMI 20.7
[2021-07-27] MEDS ORDERED: LIDOCAINE 5% TOPICAL PATCH ONE (07:49)
== END 2021-07-27 09:25 | disposition home or self-care (01) ==
LOC: JER 06:40 → JERFT 06:40
DX: M25.551 Pain in right hip (principal)
CPT/HCPCS: 99283-25

== ENCOUNTER 2021-07-28 17:28 | Emergency (ER) | payer OTHER ==
[2021-07-28 17:46] VITALS: BP 140/92; PULSE 91; TEMP 98.6; BMI 48.4
[2021-07-28] MEDS ORDERED: KETOROLAC TROMETHAMINE 60 MG/2 ML VIAL IM ONE (18:33)
[2021-07-28] MEDS ORDERED: KETOROLAC TROMETHAMINE 60 MG/2 ML VIAL ONE (18:34)
[2021-07-28 18:51] LABS: EPI CELLS 21 /uL (0-25.1); HYALINE CASTS 0 /uL (0-3.1); URINE APPEARANCE CLEAR; URINE BACTERIA 206 /uL (0-1359); URINE BILIRUBIN NEGATIVE (NEGATIVE); URINE COLOR YELLOW; URINE GLUCOSE (UA) NEGATIVE (NEGATIVE); URINE KETONE NEGATIVE (NEGATIVE); URINE LEUK ESTERASE TRACE (NEGATIVE); URINE NITRITE NEGATIVE (NEGATIVE); URINE PROTEIN 2+ (NEGATIVE); URINE RBC 95 /uL (0-23.9); URINE UROBILINOGEN 0.2 mg/dL (0.2-1.0); URINE WBC 54 /uL (0-25.8)
== END 2021-07-28 20:35 | disposition home or self-care (01) ==
LOC: JERFT 17:28
PROC: 3E0233Z Introduction of Anti-inflammatory into Muscle, Percutaneous Approach (ICD-10-PCS; principal; 2021-07-28)
DX: M25.551 Pain in right hip (principal)
CPT/HCPCS: 81003; 87086; 99284-25

== ENCOUNTER 2022-01-16 17:39 | Emergency (ER) | payer OTHER ==
[2022-01-16] MEDS ORDERED: KETOROLAC TROMETHAMINE 30 MG/1 ML VIAL IM ONE (18:11)
[2022-01-16 18:15] VITALS: BP 140/82; PULSE 88; TEMP 98.2; BMI 44.3
[2022-01-16] MEDS ORDERED: KETOROLAC TROMETHAMINE 30 MG/1 ML VIAL ONE (18:49)
== END 2022-01-16 19:12 | disposition home or self-care (01) ==
LOC: FER 17:39
PROC: 3E0233Z Introduction of Anti-inflammatory into Muscle, Percutaneous Approach (ICD-10-PCS; principal; 2022-01-16)
DX: M16.11 Unilateral primary osteoarthritis, right hip (principal)
CPT/HCPCS: 73502-TC-RT-FY; 99284-25

== ENCOUNTER 2022-03-13 15:31 | Emergency (ER) | payer OTHER ==
[2022-03-13 16:23] VITALS: BP 120/67; PULSE 97; TEMP 99; BMI 47.3
[2022-03-13] MEDS ORDERED: SUCRALFATE 1 GM/10 ML UNIT DOSE CUPS PO ONE (17:56)
[2022-03-13] MEDS ORDERED: SODIUM CHLORIDE 0.9% 500 ML INFUS.BAG IV ONE (17:56)
[2022-03-13] MEDS ORDERED: SUCRALFATE 1 GM/10 ML UNIT DOSE CUPS ONE (18:20)
[2022-03-13 18:43] LABS: HEMATOCRIT 27.1 % (32.4-45.2); HEMOGLOBIN 8.9 G/dL (10.7-15.3); RBC 3.35 10^6/uL (3.60-5.2); WHITE BLOOD COUNT 7.8 10^3/uL (4.0-10.8)
[2022-03-13 18:44] LABS: MCH 26.7 pg (25.7-33.7); MEAN PLT VOLUME 7.1 fl (7.5-11.1); PLATELET COUNT 455.9 10^3/uL (134-434); RDW 16.9 % (11.6-15.6)
[2022-03-13 18:45] LABS: PLATELET ESTIMATE SLT INCREASE
[2022-03-13 18:52] LABS: CALCIUM 9.1 mg/dl (8.5-10)
[2022-03-13 18:53] LABS: ALBUMIN 2.9 g/dl (3.4-5.0); BILIRUBIN,TOTAL 0.4 mg/dl (0.2-1); TOT PROT 7.2 g/dl (6.4-8.2)
[2022-03-13] MEDS ORDERED: KETOROLAC TROMETHAMINE 15 MG/ML VIAL IM ONE (19:21)
[2022-03-13] MEDS ORDERED: KETOROLAC TROMETHAMINE 15 MG/ML VIAL ONE (19:22)
[2022-03-13] MEDS ORDERED: KETOROLAC TROMETHAMINE 15 MG/ML VIAL IVPUSH ONE (19:23)
[2022-03-13 19:51] LABS: EPITHELIAL CELLS FEW /hpf
== END 2022-03-13 19:27 | disposition home or self-care (01) ==
LOC: FER 15:31
PROC: 3E0333Z Introduction of Anti-inflammatory into Peripheral Vein, Percutaneous Approach (ICD-10-PCS; principal; 2022-03-13)
DX: R10.13 Epigastric pain (principal)
CPT/HCPCS: 36415; 80053; 81003; 81015; 85025; 87086; 99284-25

== ENCOUNTER 2022-04-18 18:59 | Emergency (ER) | payer OTHER ==
[2022-04-18 19:14] VITALS: BP 139/87; PULSE 82; TEMP 98; BMI 43.6
[2022-04-18] MEDS ORDERED: IBUPROFEN 400 MG TABLET (FP) PO ONE ×2 (21:22→21:29)
[2022-04-18] MEDS ORDERED: IBUPROFEN 600 MG TABLET (FP) PO ONE (21:28)
== END 2022-04-18 22:25 | disposition home or self-care (01) ==
LOC: FER 18:59
DX: S76.911A Strain of unspecified muscles, fascia and tendons at thigh level, right thigh, initial encounter (principal); M54.31 Sciatica, right side; Y99.9 Unspecified external cause status
CPT/HCPCS: 74176-TC; 81003; 81015; 84703; 87086; 99285-25

== ENCOUNTER 2022-08-02 18:24 | Emergency (ER) | payer OTHER ==
[2022-08-02 18:48] VITALS: BP 143/87; PULSE 96; RESP 96; TEMP 99; BMI 45.9
[2022-08-02] MEDS ORDERED: NAPROXEN 500 MG TABLET PO ONE (19:44)
[2022-08-02] MEDS ORDERED: predniSONE 20 MG TABLET (UD) PO ONE (19:44)
[2022-08-02] MEDS ORDERED: NAPROXEN 500 MG TABLET ONE (19:48)
[2022-08-02] MEDS ORDERED: predniSONE 20 MG TABLET (UD) ONE (19:48)
[2022-08-02 21:45] LABS: EPITHELIAL CELLS FEW /hpf
== END 2022-08-02 20:27 | disposition home or self-care (01) ==
LOC: FER 18:24
DX: M54.9 Dorsalgia, unspecified (principal); R10.30 Lower abdominal pain, unspecified
CPT/HCPCS: 81003; 81015; 99283-25

== ENCOUNTER 2023-04-09 07:07 | Emergency (ER) | payer OTHER ==
[2023-04-09 07:15] VITALS: BP 152/100; PULSE 95; RESP 18; TEMP 98; BMI 43.0
[2023-04-09] MEDS ORDERED: KETOROLAC TROMETHAMINE 30 MG/1 ML VIAL IM ONE (07:26)
[2023-04-09] MEDS ORDERED: LIDOCAINE 5% TOPICAL PATCH TP ONE (07:26)
[2023-04-09] MEDS ORDERED: DEXAMETHASONE SOD PHOSPHATE 10 MG/1 ML VIAL IM ONE (07:26)
[2023-04-09] MEDS ORDERED: KETOROLAC TROMETHAMINE 30 MG/1 ML VIAL ONE (07:28)
[2023-04-09] MEDS ORDERED: DEXAMETHASONE SOD PHOSPHATE/PF 10 MG/ML SDV ONE (07:28)
[2023-04-09] MEDS ORDERED: LIDOCAINE 5% TOPICAL PATCH ONE (07:29)
[2023-04-09] MEDS ORDERED: LIDOCAINE PATCH REMOVAL MC SCH (22:00)
== END 2023-04-09 07:47 | disposition home or self-care (01) ==
LOC: FER 07:07
PROC: 3E023GC Introduction of Other Therapeutic Substance into Muscle, Percutaneous Approach (ICD-10-PCS; principal; 2023-04-09)
PROC: 3E0233Z Introduction of Anti-inflammatory into Muscle, Percutaneous Approach (ICD-10-PCS; 2023-04-09)
DX: R10.31 Right lower quadrant pain (principal); M54.41 Lumbago with sciatica, right side
CPT/HCPCS: 99284-25; J1100

== ENCOUNTER 2023-08-21 11:55 | Emergency (ER) | payer OTHER ==
[2023-08-21 12:16] VITALS: BP 128/80; PULSE 80; RESP 18; TEMP 98.2; BMI 45.1
[2023-08-21 12:51] LABS: HEMATOCRIT 29.9 % (32.4-45.2); HEMOGLOBIN 9.2 G/dL (10.7-15.3); MCH 26.7 pg (25.7-33.7); MCHC 30.9 g/dl (32.0-36.0); MEAN CELL VOLUME 86.4 fl (80-96); MEAN PLT VOLUME 7.7 fl (7.5-11.1); PLATELET COUNT 287.7 10^3/uL (134-434); RBC 3.46 10^6/uL (3.60-5.2); RDW 16.6 % (11.6-15.6); WHITE BLOOD COUNT 5.6 10^3/uL (4.0-10.8)
[2023-08-21 13:36] LABS: ALBUMIN 3.4 g/dl (3.4-5.0); BILIRUBIN,TOTAL 0.3 mg/dl (0.2-1); CALCIUM 8.8 mg/dl (8.5-10.1); CREATININE 0.8 mg/dl (0.6-1.3); POTASSIUM 3.8 mmol/L (3.5-5.1); TOT PROT 6.4 g/dl (6.4-8.2)
[2023-08-21 13:43] LABS: HCG,QUALITATIVE URINE Negative
[2023-08-21 13:46] LABS: EPITHELIAL CELLS 0-5 /hpf
[2023-08-21 13:47] LABS: AMORP URATES SMALL /hpf (NONE SEEN)
[2023-08-21] MEDS ORDERED: KETOROLAC TROMETHAMINE 15 MG/ML VIAL IM ONE (14:08)
[2023-08-21] MEDS ORDERED: KETOROLAC TROMETHAMINE 30 MG/1 ML VIAL ONE (14:38)
[2023-08-21 14:39] LABS: ANISOCYTOSIS 1+; PLATELET ESTIMATE ADEQUATE
== END 2023-08-21 15:35 | disposition home or self-care (01) ==
LOC: FER 11:55
PROC: 3E0233Z Introduction of Anti-inflammatory into Muscle, Percutaneous Approach (ICD-10-PCS; principal; 2023-08-21)
DX: R10.9 Unspecified abdominal pain (principal); G89.29 Other chronic pain; R53.83 Other fatigue; R53.1 Weakness
CPT/HCPCS: 36415; 80053; 81003; 81015; 84703; 85027; 87086; 99284-25

== ENCOUNTER 2023-11-07 16:26 | Emergency (ER) | payer OTHER ==
[2023-11-07 16:32] VITALS: BP 116/74; PULSE 90; RESP 20; TEMP 98; BMI 47.3
== END 2023-11-07 17:55 | disposition left against medical advice (07) ==
LOC: JER 16:26
DX: N93.9 Abnormal uterine and vaginal bleeding, unspecified (principal); N95.9 Unspecified menopausal and perimenopausal disorder
CPT/HCPCS: 99281-25

== ENCOUNTER 2023-12-28 10:40 | Emergency (ER) | payer OTHER ==
[2023-12-28 11:12] VITALS: BP 155/87; PULSE 87; RESP 18; TEMP 99.1; BMI 44.7
[2023-12-28] MEDS ORDERED: LIDOCAINE 5% TOPICAL PATCH ONE (12:08)
[2023-12-28] MEDS ORDERED: KETOROLAC TROMETHAMINE 15 MG/ML VIAL ONE (12:08)
[2023-12-28] MEDS: LIDOCAINE 5% TOPICAL PATCH TP ONE (12:19)
[2023-12-28] MEDS: KETOROLAC TROMETHAMINE 15 MG/ML VIAL IM ONE (12:19)
[2023-12-28] MEDS ORDERED: LIDOCAINE PATCH REMOVAL MC SCH (22:00)
== END 2023-12-28 13:52 | disposition home or self-care (01) ==
LOC: FER 10:40
PROC: 3E0233Z Introduction of Anti-inflammatory into Muscle, Percutaneous Approach (ICD-10-PCS; principal; 2023-12-28)
DX: M54.50 Low back pain, unspecified (principal); G89.29 Other chronic pain
CPT/HCPCS: 73502-TC-RT-FY; 73552-TC-RT-FY; 99284-25

== ENCOUNTER 2024-07-17 11:49 | Emergency (ER) | payer OTHER ==
[2024-07-17 12:00] VITALS: TEMP 98.6; BMI 43.6
[2024-07-17] MEDS ORDERED: LIDOCAINE 5% TOPICAL PATCH ONE (12:16)
[2024-07-17] MEDS ORDERED: KETOROLAC TROMETHAMINE 30 MG/1 ML VIAL ONE (12:16)
[2024-07-17] MEDS: LIDOCAINE 5% TOPICAL PATCH TP ONE (12:20)
[2024-07-17] MEDS: KETOROLAC TROMETHAMINE 30 MG/1 ML VIAL IM ONE (12:22)
[2024-07-17 12:34] LABS: HCG,QUALITATIVE URINE Negative
[2024-07-17] MEDS ORDERED: ACETAMINOPHEN 500 MG TABLET (FP) ONE (13:36)
[2024-07-17] MEDS: ACETAMINOPHEN 500 MG TABLET (FP) PO ONE (13:42)
[2024-07-17 13:54] LABS: URINE TRICHOMONAS PRESENT
[2024-07-17] MEDS ORDERED: metroNIDAZOLE 250 MG TABLET ONE (14:16)
[2024-07-17] MEDS: metroNIDAZOLE 500 MG TABLET PO ONE (14:45)
[2024-07-17 15:08] VITALS: BP 156/98; PULSE 85; RESP 18
[2024-07-17] MEDS ORDERED: LIDOCAINE PATCH REMOVAL MC ONE (22:00)
== END 2024-07-17 16:00 | disposition home or self-care (01) ==
LOC: FER 11:49
DX: M54.41 Lumbago with sciatica, right side (principal)
CPT/HCPCS: 74176-TC; 81003; 81015; 84703; 87086; 87186; 99284-25

== ENCOUNTER 2025-01-26 15:11 | Emergency (ER) | payer OTHER ==
[2025-01-26 15:28] VITALS: BP 139/85; PULSE 86; RESP 17; TEMP 97.7; BMI 50.2
[2025-01-26] MEDS ORDERED: KETOROLAC TROMETHAMINE 30 MG/1 ML VIAL ONE (17:02)
[2025-01-26] MEDS: KETOROLAC TROMETHAMINE 30 MG/1 ML VIAL IM ONE (17:06)
[2025-01-26 17:42] LABS: EPITHELIAL CELLS 21-50 /hpf
== END 2025-01-26 17:55 | disposition home or self-care (01) ==
LOC: FER 15:11
PROC: 3E0233Z Introduction of Anti-inflammatory into Muscle, Percutaneous Approach (ICD-10-PCS; principal; 2025-01-26)
DX: M54.50 Low back pain, unspecified (principal); G89.29 Other chronic pain; M79.604 Pain in right leg; M79.605 Pain in left leg
CPT/HCPCS: 81003; 81015; 87086; 96372; 99284-25

== ENCOUNTER 2025-04-20 20:33 | Emergency (ER) | payer OTHER ==
[2025-04-20 20:59] VITALS: PULSE 80; RESP 18; TEMP 97.7; BMI 49.0
[2025-04-20 21:13] LABS: HCG,QUALITATIVE URINE Negative
[2025-04-20 21:17] LABS: URIC ACID CRYSTALS FEW /hpf (NONE SEEN)
[2025-04-20 22:42] VITALS: BP 137/107
[2025-04-20] MEDS: NAPROXEN 500 MG TABLET PO ONE (22:50)
[2025-04-20] MEDS ORDERED: NAPROXEN 500 MG TABLET ONE (22:50)
== END 2025-04-21 00:21 | disposition home or self-care (01) ==
LOC: FER 20:33
DX: D25.9 Leiomyoma of uterus, unspecified (principal); N93.9 Abnormal uterine and vaginal bleeding, unspecified; R10.9 Unspecified abdominal pain
CPT/HCPCS: 76830-TC; 81003; 81015; 84703; 87086; 99284-25